=== PATIENT | male | born 1955 | race Caucasian/White ===

== ENCOUNTER 2020-07-14 19:35 | Emergency (ER) | payer BC, SELFPAY ==
--- NOTE | ~2020-07-14 | XR_ITS ---
XR abdomen/kub 1V DATE: 07/14/2020 21:17 INDICATION: Nausea and bloating for 3 days. Patient has a gastrostomy tube. TECHNIQUE: 3 Portable supine AP views COMPARISON: None FINDINGS: A gastrostomy tube overlies the stomach in the medial left upper quadrant. No bowel obstruction is evident. The psoas shadows are intact. No visceromegaly is evident. IMPRESSION: Gastrostomy tube; no evidence of bowel obstruction Reviewed, dictated and finalized at [facility]. Reviewed, dictated and finalized at [facility].
[2020-07-14 20:06] VITALS: BP 152/96; PULSE 104; RESP 18; TEMP 36.1; O2SAT 100
[2020-07-14 20:21] LABS: Basophils Percent Auto 0.3 % (0.2-1.2); Eosinophils Absolute Auto 0.2 K/mm3 (0-0.3); Eosinophils Percent Auto 1.8 % (0-4.4); Hematocrit 47.8 % (42.0-52.0); Hemoglobin 16.2 g/dL (14.0-18.0); Immature Granulocyte Absolute 0.03 K/mm3 (0.00-0.031); Immature Granulocyte Percent A 0.3 % (0-0.5); Lymphocytes Absolute Auto 1.36 K/mm3 (0.9-3.2); Lymphocytes Percent Auto 15.1 % (18.3-44.2); Mean Corpuscular HGB Conc 33.9 g/dl (32-36); Mean Corpuscular Hemoglobin 31.6 pg (26-34); Mean Corpuscular Volume 93.4 fl (80-100); Monocytes Absolute Auto 0.7 K/mm3 (0.1-0.6); Monocytes Percent Auto 7.8 % (2.6-8.5); Neutrophils Absolute Auto 6.7 K/mm3 (1.3-6.7); Neutrophils Percent Auto 74.7 % (45.5-73.1); Platelet Count Result 314 k/mm3 (150-375); Red Blood Count 5.12 M/mm3 (4.6-6.20); Red Cell Distribution Width 12.6 % (11.5-14.5)
[2020-07-14 20:30] VITALS: BP 144/84; PULSE 86; RESP 15; O2SAT 99
[2020-07-14 20:37] LABS: Alanine Aminotransferase 19 U/L (4-50); Albumin Level 4.7 g/dL (3.5-5.1); Alkaline Phosphatase 54 U/L (38-126); Anion Gap 6 mmol/L (8-16); Aspartate Amino Transferase 43 U/L (17-59); Bilirubin,Total 0.5 mg/dL (0.2-1.3); Blood Urea Nitrogen 20 mg/dL (9-20); Calcium 9.6 mg/dL (8.4-10.2); Carbon Dioxide 30 mmol/L (22-30); Chloride 100 mmol/L (98-107); Estimated CRCL calculation 55 ml/min; Estimated Glomerular Filt Rate > 60; Glucose 124 mg/dL (75-110); Lipase 52 U/L (23-300); Potassium 4.2 mmol/L (3.4-5.0); Sodium 136 mmol/L (137-145)
--- NOTE | 2020-07-14 21:07 | ED.NAVMDI ---
HPI - Nausea/Vomiting/Diarrhea General Chief complaint: Nausea/Vomiting/Diarrhea Stated complaint: Nausea/Vomiting Time Seen by Provider: 07/14/20 20:49 History of Present Illness HPI Narrative: Patient is a 64-year-old male who presents ER with nausea and bloating. 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 He has been trying to give himself feeds but he reports it stays in stomach and sours makes him nauseated so he will release the pressure and gas and food will come out. He reports he is not having bowel movements but has chronic slow transit. No fevers or chills or sweats. He is without chest pain or overt abdominal pain. Him and his are concerned that he is very dehydrated. No history of bowel obstructions. No known sick contacts. Related Data Allergies Allergy/AdvReac Type Severity Reaction Status Date / Time codeine AdvReac Unknown Nausea Verified 07/14/20 21:01 Review of Systems Review of Systems: All systems reviewed & are unremarkable except as noted in HPI and below Constitutional: Constitutional: Denies chills, Denies fever(s) and Denies weakness ENT: Denies nasal congestion and Denies sore throat Cardiovascular: Cardiovascular: Denies chest pain Gastrointestinal: Gastrointestinal: Denies abdominal pain, Reports bloating, Reports constipation, Denies diarrhea, Reports nausea and Denies vomiting PMFSH Past Medical History Medical History (Updated 07/14/20 @ 23:58 by Sampson Correa MD) Hypothyroidism (acquired) Major depressive disorder, recurrent, moderate Malignant neoplasm of oropharynx, unspecified Surgical History Surgical History (Updated 07/14/20 @ 21:09 by Sampson Correa MD) Other artificial openings of gastrointestinal tract status Tracheostomy in place Family History Family History Mother Patient's mother is Family history of chronic obstructive pulmonary disease Family history of cardiovascular disease Father Patient's father is Carcinoma of colon Family history of lung cancer Family history of malignant neoplasm of urinary bladder Other Depression Social History Social History Smoking status: Never smoker Alcohol intake: current Gender identity (if verbalized by the patient): Male Sexual Orientation (if Verbalized by the Patient): Straight or Heterosexual Exam Narrative: Exam Narrative: GENERAL: Well-appearing, well-nourished, and in no acute distress. HEAD: Normocephalic, atraumatic. NECK: Tracheostomy present. CHEST: Clear to auscultation. No respiratory distress. HEART: Regular rate and rhythm. Normal peripheral pulses. ABDOMEN: Soft, nontender, nondistended, G-tube present with normal-appearing skin surrounding it.. EXTREMITIES: Normal range of motion. No edema. NEURO: Alert and oriented x3. Course Course Emergency Course: Patient informed results. She is having burning pain after putting water in through his G-tube. Will give him a GI cocktail. Reports he has not been taking his famotidine so his reflux may be increased since he has not been eating. Reevaluation(s) Reevaluation #1: Symptoms improved with GI cocktail. Discharge home. Recommend home [place] as well as restarting his famotidine. Verbalized understanding. Date: 07/14/20 Time: 23:57 Vital Signs Vital signs: Vital Signs Temperature 97.0 F L 07/14/20 20:06 Pulse Rate 104 H 07/14/20 20:06 Respiratory Rate 18 07/14/20 20:06 Blood Pressure 152/96 H 07/14/20 20:06 Pulse Oximetry 100 07/14/20 20:06 Temperature 97.0 F L 07/14/20 20:06 Pulse Rate 90 07/14/20 22:51 Respiratory Rate 20 07/14/20 22:51 Blood Pressure 149/93 H 07/14/20 22:51 Pulse Oximetry 99 07/14/20 22:51 MDM - Nausea/Vomiting/Diarrhea Lab Data Result diagrams:
[2020-07-14 21:14] VITALS: BP 169/95; PULSE 86
[2020-07-14 21:16] VITALS: BP 134/93; PULSE 94
[2020-07-14] MEDS: ONDANSETRON INJ 4 MG/2 ML VIAL IV PUSH (21:19)
[2020-07-14 21:20] VITALS: BP 128/95; PULSE 101
[2020-07-14] MEDS: SODIUM CHLORIDE 0.9% IV 1,000 ML 999 ML IV CONT (21:20)
--- NOTE | 2020-07-14 21:20 | PC.NURSE ---
Rn asked pt. for urine sample. pt. unable to void.
[2020-07-14 22:19] LABS: Add Urine Microscopic? YES; Appearance Urine Cloudy (Clear); Bilirubin Urine Negative (Negative); Blood Urine Negative (Negative); Color Urine Yellow (Yellow); Glucose Urine UA Negative (Negative); Ketones Urine 2+ mg/dL (Negative); Leukocyte Esterase Ur Negative LEU/UL (Negative); Mucus Urine Heavy /lpf; Nitrate Urine Negative (Negative); Protein Urine 2+ mg/dL (Negative); RBC Urine 0-2 /hpf (0-2); Specific Grav Ur 1.027 (1.001-1.035); Squamous Epithelial Cell Urine Rare /hpf (Few); Urobilinogen Urine Negative mg/dL (<2.0)
[2020-07-14 22:51] VITALS: BP 149/93; PULSE 90; RESP 20; O2SAT 99
[2020-07-14] MEDS: BELLADONNA ALK/PHENOB ELIX 10 ML, MAG HYDROX/ALUMINUM HYD/SIMETH 30 ML, LIDOCAINE HCL 2... FEED TUBE (23:29)
[2020-07-15 00:20] VITALS: BP 125/89; PULSE 81; RESP 28; O2SAT 99
== END 2020-07-15 00:20 | disposition home or self-care (01) ==
PROVIDERS: Emergency Medicine; Emergency Provider Emergency Medicine; PCP Family Medicine
DX: K29.70 Gastritis, unspecified, without bleeding (principal); E03.9 Hypothyroidism, unspecified; F32.9 Major depressive disorder, single episode, unspecified
CPT/HCPCS: 36415; 74018; 80053; 81001; 83690; 85025; 96361; 96374; 99284; A9270; J2270; J2405; J7030